=== PATIENT | female | born 1940 | race Caucasian/White ===

== ENCOUNTER → 2017-10-03 | Outpatient (CLI) | payer OTHER, MEDICARE | LOC: BMCIMAGING 08:02 | PROVIDERS: ATTEND Orthopaedic Surgery | DX: M17.12 Unilateral primary osteoarthritis, left knee (principal) ==

== ENCOUNTER → 2017-12-05 | Outpatient (CLI) | payer OTHER, MEDICARE | LOC: BMCIMAGING 09:08 | PROVIDERS: ATTEND Orthopaedic Surgery | DX: M16.11 Unilateral primary osteoarthritis, right hip (principal) ==

== ENCOUNTER → 2017-12-17 | Outpatient (CLI) | payer OTHER, MEDICARE | LOC: FIMAGING 09:49 | PROVIDERS: ATTEND Orthopaedic Surgery | DX: Z01.818 Encounter for other preprocedural examination (principal); M17.12 Unilateral primary osteoarthritis, left knee; Z96.651 Presence of right artificial knee joint ==

== ENCOUNTER 2017-12-30 07:15 | Observation (INO) | payer OTHER, MEDICARE ==
--- NOTE | 2017-12-30 06:18 | PDIAF ---
- Diagnosis Diagnosis: left knee djd Code Status: Full Code - Medication Management Discharge Medications: Medications to Continue on Transfer Aspirin EC [Aspirin EC 81 mg (OTC)] 81 mg PO DAILY 04/29/13 [Last Taken 04/29/13 ] Acetaminophen [Tylenol 325mg (*)] 650 mg PO Q6 PRN 12/06/17 [Last Taken Unknown] Herbals/Supplements -Info Only 1 ea PO DAILY 12/06/17 [Last Taken Unknown] Naproxen Sodium [Aleve 220 MG (*)] 220 mg PO DAILY PRN 12/06/17 [Last Taken Unknown] Tears/Dextran 70/Hypromellose [Natural Balance Tears (*)] 1 drop EACHEYE Q2 PRN 12/06/17 [Last Taken Unknown] Discharge Medications: Refer to the Discharge Home Medication list for PRN reason. - Orders Services needed: Physical Therapy Diet Recommendation: no restrictions on diet Diet Texture: Regular Texture Diet Additional Instructions: TOTAL JOINT ARTHROPLASTY DISCHARGE INSTRUCTIONS 1. Your surgeon follows the [facility] protocol for reducing your risk of DVT (blood clots) following surgery. Medication will be ordered to prevent blood clots. A sudden increase in calf pain and/or swelling could indicate a blood clot in your leg. If this occurs, please call your surgeon or his/her political science research assistant. An ultrasound of the leg may be necessary to diagnose a blood clot. If you have conditions that make you a higher risk for blood clots, your surgeon may use more aggressive ways to prevent them. Notify your surgeon if you think you are a high risk for blood clots. 2. Wear your white surgical stockings (KASSANDRA hose) for 2 weeks. This decreases your swelling and may help prevent blood clots. It is ok to remove KASSANDRA hose at night time to give your legs a break. 3. Swelling and bruising in the surgical leg is common. If you feel that it is excessive, please notify your surgeon. 4. Elevate your surgical leg with the ankle above the hip several times every day. Please keep the leg straight when you elevate by putting pillows under your foot. Do not put pillows under your knee. This will make being able to fully straighten more difficult. This is uncomfortable, but try to do it as much as possible. 5. For total knee replacements use compressive wrap on your knee for 3-5 days after surgery, then you can discontinue it. 6. Use a walker or crutches for 1-2 weeks. Progress your weight-bearing as tolerated. You may start to use a cane when you feel stable and safe. 7. You will receive physical therapy instructions in the hospital. Continue those exercises at home. There are additional exercises in the total joint booklet you were given before surgery. Outpatient physical therapy will begin 7- 10 days after surgery. Please schedule this in advance. 8. Use ice on your knee at least 3-5 times every day for 30 minutes. This helps reduce pain and swelling. Also use it at night before falling asleep. 9. Leave your surgical dressing in place for 2 weeks. Your dressing is water resistant, but not waterproof. Cover it with Saran Wrap or [id number] before showering. You may shower as soon as you feel safe entering a shower. If you notice bleeding from your incision 2 or 3 days after surgery, please notify your surgeon. 10. Due to narcotics, decreased activity and altered diet, most patients experience constipation after surgery. Use jblv-lhb-jvliabl stool softeners while you are on narcotics. 11. You may drive a car when you are comfortable bearing weight, have good muscular control of your leg and are off narcotics. This usually occurs 2-4 weeks after surgery, depending on which leg was operated on. 12. If there are questions not addressed here, please refer the [facility] book given for more information. If you still have questions, please contact your surgeon s office. 13. If you have a life-threatening emergency, please call 911 and go to the emergency room immediately. For non-life threatening emergencies, please call your physicians office for advice before going to the emergency room. - Follow Up Care Current Providers and Referrals: Sherice Orr MD [Primary Care Provider] - Venkatesh Stratton MD [Medical Doctor] -
--- NOTE | 2017-12-30 06:18 | PDHPUP ---
History & Physical Update H&P update statement: This history and physical update is based on an assessment of the patient which was completed after admission or registration (within 24 hours), but prior to the surgery/procedure. H&P update: no change in patient's condition since H&P completed
[~2017-12-30 07:15] MED LIST: CALCIUM CHLORIDE 1 GM/10 ML INJ ONE; ROPIVACAINE 0.2% 80 MG, EPINEPHrine 0.2 MG, KETOROLAC TROMETHAMINE 30 MG, morphINE 10 M... IU ONE; THROMBIN (BOVINE) 5,000 UNIT VIAL TP ONE; TRANEXAMIC ACID 1,000 MG in NS 100 ML IV ONE; ceFAZolin 1 GM/5 ML SYR ONE
[2017-12-30] MEDS ORDERED: FAMOTIDINE 20 MG TAB PO ONE (07:39)
[2017-12-30] MEDS ORDERED: ceFAZolin 2 GM/DEXTROSE 100 ML IV ONE (07:39)
[2017-12-30] MEDS ORDERED: ACETAMINOPHEN 325 MG TAB PO ONE (07:39)
[2017-12-30] MEDS ORDERED: LR 1,000 ML IV ONE (07:41)
--- NOTE | 2017-12-30 08:09 | PDANEPAE ---
ANE Past Medical History - Cardiovascular History Hx Hypertension: No Hx Arrhythmias: No Hx Chest Pain: No Hx Coronary Artery / Peripheral Vascular Disease: No Hx CHF / Valvular Disease: No Hx Palpitations: No - Pulmonary History Hx COPD: No Hx Asthma/Reactive Airway Disease: No Hx Recent Upper Respiratory Infection: No Hx Oxygen in Use at Home: No Hx Sleep Apnea: No Sleep Apnea Screening Result - Last Documented: Negative - Neurologic History Hx Cerebrovascular Accident: No Hx Seizures: No Hx Dementia: No - Endocrine History Hx Diabetes: No Hypothyroid: No Hyperthyroid: No Obesity: no - Renal History Hx Renal Disorders: No - Liver History Hx Hepatic Disorders: No - Neurological & Psychiatric Hx Hx Neurological and Psychiatric Disorders: No - Cancer History Hx Cancer: No - Congenital Disorder History Hx Congenital Disorders: No - GI History GERD: no Hx Gastrointestinal Disorders: No - Other Health History Other Health History: wears glasses occ - Chronic Pain History Chronic Pain: Yes (left knee and right hip) - Surgical History Prior Surgeries: 05/04/13 right TKA with Repine. 02/2013 eye surgery with Perrin. hysterectomy 1987. bilateral cataracts ANE Review of Systems Review of Systems: - Exercise capacity METS (RN): 5 METS ANE Patient History - Allergies Allergies/Adverse Reactions: No Known Allergies Allergy (Verified 12/09/17 10:33) - Home Medications Home Medications: Aspirin EC [Aspirin EC 81 mg (OTC)] 81 mg PO DAILY 04/29/13 [Last Taken 12/23/17 ] Acetaminophen [Tylenol 325mg (*)] 650 mg PO Q6 PRN 12/06/17 [Last Taken 12/23/17 ] Herbals/Supplements -Info Only 1 ea PO DAILY 12/06/17 [Last Taken 12/23/17] Naproxen Sodium [Aleve 220 MG (*)] 220 mg PO DAILY PRN 12/06/17 [Last Taken 08/11] Tears/Dextran 70/Hypromellose [Natural Balance Tears (*)] 1 drop EACHEYE Q2 PRN 12/06/17 [Last Taken 12/28/17] - Anes Hx Anes Hx: no prior problems - Smoking Hx Smoking Status: Never smoked Marijuana use: No - Alcohol Use Alcohol Use: Rarely - Family Anes Hx Family Anes Hx: neg - N/A Family Hx Anesthesia Complications: none ANE Labs/Vital Signs - Vital Signs Height: 170.18 cm Weight: 68.039 kg ANE Physical Exam - Airway Neck exam: decreased ROM Mallampati Score: Class 2 Mouth exam: normal dental/mouth exam - Pulmonary Pulmonary: no respiratory distress, no rales or rhonchi, clear to auscultation - Cardiovascular Cardiovascular: regular rate and rhythym, no murmur, rub, or gallop - ASA Status ASA Status: II ANE Anesthesia Plan Anesthesia Plan: MAC, spinal Regional Anesthesia: single shot NB, adductor canal FNB Total IV Anesthesia: No
[2017-12-30] MEDS ORDERED: ceFAZolin 1 GM/5 ML SYR ONE (08:53)
[2017-12-30] MEDS ORDERED: THROMBIN (BOVINE) 5,000 UNIT VIAL TP ONE (08:53)
[2017-12-30] MEDS ORDERED: CALCIUM CHLORIDE 1 GM/10 ML INJ ONE (08:53)
[2017-12-30] MEDS ORDERED: PROPOFOL/EMULSION 500 MG/50 ML BOTTLE IV ONE (09:13)
[2017-12-30] MEDS ORDERED: fentaNYL 100 MCG/2 ML INJ ONE (09:13)
[2017-12-30] MEDS ORDERED: MIDAZOLAM 2 MG/2 ML VIAL ONE (09:14)
[2017-12-30] MEDS ORDERED: BUPIVACAINE/DEXTROSE 7.5MG/ML 2 ML SPINAL AMP SP ONE (09:14)
[2017-12-30] MEDS ORDERED: ONDANSETRON 4 MG/2 ML VIAL IVP PRN ×2 (10:03→10:35)
[2017-12-30] MEDS ORDERED: oxyCODONE IR 5 MG TAB PO PRN ×2 (10:03→10:35)
[2017-12-30] MEDS ORDERED: PHENYLEPHRINE HCL 100 MCG/ML SYR IVP PRN (10:03)
[2017-12-30] MEDS ORDERED: LR 500 ML IV PRN (10:03)
[2017-12-30] MEDS ORDERED: HYDROCODONE/APAP 5/325 TAB PO PRN (10:03)
[2017-12-30] MEDS ORDERED: PROMETHAZINE HCL 25 MG/ML INJ IVP PRN ×2 (10:03→10:35)
[2017-12-30] MEDS ORDERED: MIDAZOLAM 2 MG/2 ML VIAL IVP ONE (10:03)
[2017-12-30] MEDS ORDERED: fentaNYL 100 MCG/2 ML INJ IVP PRN (10:03)
[2017-12-30] MEDS ORDERED: ACETAMINOPHEN 500 MG TAB PO PRN (10:03)
[2017-12-30] MEDS ORDERED: NALOXONE HCL 0.4 MG/ML INJ IVP PRN (10:03)
[2017-12-30] MEDS ORDERED: DIPHENOXYLATE/ATROPINE LOMOTIL 1 TAB PO PRN (10:35)
[2017-12-30] MEDS ORDERED: traMADol 50 MG TAB PO PRN (10:35)
[2017-12-30] MEDS ORDERED: METOCLOPRAMIDE 10 MG/2 ML VIAL IVP PRN (10:35)
[2017-12-30] MEDS ORDERED: MAGNESIUM HYDROXIDE 30 ML UDCUP PO PRN (10:35)
[2017-12-30] MEDS ORDERED: ONDANSETRON DISINTEGRATING 4 MG TAB PO PRN (10:35)
[2017-12-30] MEDS ORDERED: LACTULOSE 20 GM/30 ML UDCUP PO PRN (10:35)
[2017-12-30] MEDS ORDERED: BISACODYL 10 MG SUPP PR PRN (10:35)
[2017-12-30] MEDS ORDERED: diphenhydrAMINE 25 MG CAP PO PRN (10:35)
[2017-12-30] MEDS ORDERED: TEMAZEPAM 15 MG CAP PO PRN (10:35)
[2017-12-30] MEDS ORDERED: POLYETHYLENE GLYCOL 3350 17 GM PKT PO PRN (10:35)
[2017-12-30] MEDS ORDERED: PROMETHAZINE HCL 25 MG SUPPR PR PRN (10:35)
[2017-12-30] MEDS ORDERED: CYCLOBENZAPRINE 10 MG TAB PO PRN (10:35)
--- NOTE | 2017-12-30 10:35 | POSTOPPROG ---
Post Op Note Date of Operation: 12/30/17 Surgeon: Venkatesh Stratton Day Guard: rachel Anesthesiologist: sri Anesthesia: Spinal Pre-op Diagnosis: left knee djd Post-op Diagnosis: same Indication: same Procedure: left tka Inf/Abcess present in the surg proc area at time of surgery?: No Depth: Deep Incisional (Fascial) EBL: 100-500
[2017-12-30] MEDS ORDERED: TEARS/DEXTRAN 70/HYPROMELLOSE 15 ML OPHT.BTL EACHEYE PRN (10:36)
[2017-12-30] MEDS ORDERED: ROPIVACAINE HCL 150 MG/30 ML INJ ONE (10:43)
[2017-12-30] MEDS ORDERED: LR 1,000 ML IV SCH (11:00)
--- NOTE | 2017-12-30 12:22 | POSTANESTH ---
Post Anesthetic Evaluation Cardiovascular Status: Normal, Stable Respiratory Status: Normal, Stable Level of Consciousness/Mental Status: Can Participate in Eval Pain Control: Adequate, Prn Tx Ordered Nausea/Vomiting Control: Adequate, Prn Tx Ordered Complications Possibly Related to Anesthesia: None Noted
[2017-12-30] MEDS: ACETAMINOPHEN 325 MG TAB PO SCH ×2 (13:18→18:16)
--- NOTE | 2017-12-30 15:28 | ASMTCMCOM ---
CM Note CM Note Notes: Patient is POD #0 L TKA. She has not worked with therapies yet but has expressed that she is anxious about going home. She lives alone. I explained that we'll need to talk with Dr Stratton about sending her to a SNF. She expressed understanding and will wait to speak with him tomorrow, as will we. Case Management will follow. Date Signed: 12/30/2017 03:27 PM Electronically Signed By:Bekah Luciano RN
[2017-12-30] MEDS: TRANEXAMIC ACID 650 MG TAB PO SCH (17:18)
[2017-12-30] MEDS: ceFAZolin 2 GM/DEXTROSE 100 ML IV SCH (17:21)
[2017-12-30] MEDS: FAMOTIDINE 20 MG TAB PO SCH (22:36)
[2017-12-30] MEDS: ASPIRIN 325 MG TAB PO SCH (22:36)
[2017-12-30] MEDS: SENNOSIDES/DOCUSATE SODIUM TAB PO SCH (22:37)
[2017-12-31] MEDS: TRANEXAMIC ACID 650 MG TAB PO SCH ×2 (00:09→07:45)
[2017-12-31] MEDS: ACETAMINOPHEN 325 MG TAB PO SCH ×3 (00:09→12:28)
[2017-12-31] MEDS: ceFAZolin 2 GM/DEXTROSE 100 ML IV SCH (00:09)
[2017-12-31 07:26] VITALS: BP 110/81
[2017-12-31] MEDS: ASPIRIN 325 MG TAB PO SCH (07:46)
[2017-12-31] MEDS: FAMOTIDINE 20 MG TAB PO SCH (07:46)
[2017-12-31] MEDS: SENNOSIDES/DOCUSATE SODIUM TAB PO SCH (07:46)
--- NOTE | 2017-12-31 09:59 | SOAPPROG ---
SOAP Progress Note Assessment/Plan: Assessment: s/p tka Plan: stable d/c when clears pt dvt precautions reviewed 12/31/17 09:58 Subjective: nervous about going home min pain no cp or sob Objective: Vital Signs Temp Pulse Resp BP Pulse Ox 36.3 C 67 16 110/81 H 93 12/31/17 07:22 12/31/17 07:22 12/31/17 07:22 12/31/17 07:22 12/31/17 07:22 Laboratory Results 12/31/17 04:32 12/30/17 12/31/17 01/01/18 05:59 05:59 05:59 Intake Total 3791 Output Total 2750 600 Balance 1041 -600 dressing intact intact pf,df,ehl toes warm and pink neg homans xrays stable no fx or lucency ICD10 Worksheet Patient Problems: Problems Problem Status Onset Knee osteoarthritis Acute
--- NOTE | 2017-12-31 10:01 | PDIAF ---
- Diagnosis Diagnosis: left knee djd Code Status: Full Code - Medication Management Discharge Medications: Medications to Continue on Transfer Acetaminophen [Tylenol 325mg (*)] 650 mg PO Q6 PRN 12/06/17 [Last Taken 12/23/17 ] Herbals/Supplements -Info Only 1 ea PO DAILY 12/06/17 [Last Taken 12/23/17] Tears/Dextran 70/Hypromellose [Natural Balance Tears (*)] 1 drop EACHEYE Q2 PRN 12/06/17 [Last Taken 12/28/17] Aspirin [Aspirin 325 mg (*)] 325 mg PO DAILY tab 12/31/17 [Last Taken Unknown] oxyCODONE IR [Oxycodone Ir (*)] 5 - 10 mg PO Q3HRS PRN #60 tab 12/31/17 [Last Taken Unknown] Discharge Medications: Refer to the Discharge Home Medication list for PRN reason. - Orders Services needed: Physical Therapy Diet Recommendation: no restrictions on diet Diet Texture: Regular Texture Diet Additional Instructions: TOTAL JOINT ARTHROPLASTY DISCHARGE INSTRUCTIONS 1. Your surgeon follows the [facility] protocol for reducing your risk of DVT (blood clots) following surgery. Medication will be ordered to prevent blood clots. A sudden increase in calf pain and/or swelling could indicate a blood clot in your leg. If this occurs, please call your surgeon or his/her clinical data assistant. An ultrasound of the leg may be necessary to diagnose a blood clot. If you have conditions that make you a higher risk for blood clots, your surgeon may use more aggressive ways to prevent them. Notify your surgeon if you think you are a high risk for blood clots. 2. Wear your white surgical stockings (KASSANDRA hose) for 2 weeks. This decreases your swelling and may help prevent blood clots. It is ok to remove KASSANDRA hose at night time to give your legs a break. 3. Swelling and bruising in the surgical leg is common. If you feel that it is excessive, please notify your surgeon. 4. Elevate your surgical leg with the ankle above the hip several times every day. Please keep the leg straight when you elevate by putting pillows under your foot. Do not put pillows under your knee. This will make being able to fully straighten more difficult. This is uncomfortable, but try to do it as much as possible. 5. For total knee replacements use compressive wrap on your knee for 3-5 days after surgery, then you can discontinue it. 6. Use a walker or crutches for 1-2 weeks. Progress your weight-bearing as tolerated. You may start to use a cane when you feel stable and safe. 7. You will receive physical therapy instructions in the hospital. Continue those exercises at home. There are additional exercises in the total joint booklet you were given before surgery. Outpatient physical therapy will begin 7- 10 days after surgery. Please schedule this in advance. 8. Use ice on your knee at least 3-5 times every day for 30 minutes. This helps reduce pain and swelling. Also use it at night before falling asleep. 9. Leave your surgical dressing in place for 2 weeks. Your dressing is water resistant, but not waterproof. Cover it with Saran Wrap or Oyagf-t-Xblp before showering. You may shower as soon as you feel safe entering a shower. If you notice bleeding from your incision 2 or 3 days after surgery, please notify your surgeon. 10. Due to narcotics, decreased activity and altered diet, most patients experience constipation after surgery. Use vuvl-kit-ncbhrbo stool softeners while you are on narcotics. 11. You may drive a car when you are comfortable bearing weight, have good muscular control of your leg and are off narcotics. This usually occurs 2-4 weeks after surgery, depending on which leg was operated on. 12. If there are questions not addressed here, please refer the [facility] book given for more information. If you still have questions, please contact your surgeon s office. 13. If you have a life-threatening emergency, please call 911 and go to the emergency room immediately. For non-life threatening emergencies, please call your physicians office for advice before going to the emergency room. - Follow Up Care Current Providers and Referrals: Sherice Orr MD [Primary Care Provider] - Venkatesh Stratton MD [Medical Doctor] -
--- NOTE | 2017-12-31 16:49 | ASDISCHSUM ---
Discharge Information Plan Status:Home with Home Health Medically Cleared to Leave: Discharge Date:12/31/2017 01:48 PM CM D/C Disposition:Home Health Service ADT D/C Disposition:Home Health Service Projected Discharge Date:12/31/2017 11:00 AM Transportation at D/C: Discharge Delay Reason: Follow-Up Date:12/31/2017 11:00 AM Discharge Slot: Final Diagnosis: Placement Information Referral Type:*Home Health Care Services Referral ID:[id number] Provider Name:[facility] [place] Address 1:[address] [place] [address] Address 2: City:[place] Selection Factors: State:[place] Patient Contact Information Contact Name:CLARISSE Relationship:Friend Address: Work Phone: City: [facility] Phone: [facility] [address]/[facility] Code: Email: Financial Information Financial Class:Medicare Primary Plan Desc:MEDICARE OUTPATIENT Primary Plan Number:[id number] Secondary Plan Desc:[employer]/MDR SUPPLEMENT Secondary Plan Number:[id number] Assessment Information [facility] CM Progress Note CM Note CM Note Notes: Patient is POD #0 L TKA. She has not worked with therapies yet but has expressed that she is anxious about going home. She lives alone. I explained that we'll need to talk with Dr Stratton about sending her to a SNF. She expressed understanding and will wait to speak with him tomorrow, as will we. Case Management will follow. Date Signed: 12/30/2017 03:27 PM Electronically Signed By:Bekah Luciano RN [facility] CM Progress Note CM Note CM Note Notes: PT rec HHC. Pt medically stable for d/c with [facility], orders sent in [employer]. Pt address/phone verified. Date Signed: 12/31/2017 04:48 PM Electronically Signed By:ALFRED Bacon Intervention Information Intervention Type:*Incorrect Registration Date of Service:12/30/2017 12:40 PM Patient Type:Inpatient Staff Member:EZ Cheng, Leilani Hours: Discipline: Severity: Comment: Intervention Type:*ZHOU-Signed Date of Service:12/30/2017 03:30 PM Patient Type:Observation Staff Member:Nicki Morales Hours: Discipline: Severity: Comment:
--- NOTE | 2018-01-08 10:38 | GDS ---
[f rep st] DISCHARGE SUMMARY ADMISSION DIAGNOSIS: Left knee degenerative joint disease. DISCHARGE DIAGNOSIS: Left knee degenerative joint disease. PROCEDURE: Left total knee arthroplasty. HISTORY OF PRESENT ILLNESS: The patient is a 77-year-old woman with end-stage arthritis to her left knee. She presents for a left total knee replacement. HOSPITAL COURSE: Patient was admitted after uncomplicated total knee replacement. She tolerated the procedure well. She progressed rapidly with physical therapy. At the time of discharge, she is tiffanie erating an oral diet. Pain was well controlled on oral medicines. She is voiding without difficulty . Dressing is clean, dry, and intact. Negative Homans. X-rays are stable. DISCHARGE INSTRUCTIONS/FOLLOWUP: 1. Discharge activity: Weightbearing, range of motion as tolerated. 2. Daily dressing changes. 3. No soaking or immersion. May shower without the bandage. 4. Follow up in 2 weeks. 5. Seek attention for increasing swelling, pain, redness, leg pain shortness of breath, or other foc al complaint. DISCHARGE MEDICATIONS: Oxycodone 5 mg 1-2 every 4 hours p.r.n. pain, aspirin 10 25 mg p.o. daily for 6 weeks. /[id number]/MODL
--- NOTE | 2018-01-08 10:38 | GOP ---
[f rep st] OPERATIVE REPORT DATE OF OPERATION: 12/30/2017 SURGEON: Venkatesh Stratton MD ROUTE CONTRACTOR: Frank Tinoco, [employer] SECRETARY, FILLING TECHNICIAN, certified surgical tech/first assistant was medical necessity for the entirety of t he case. PREOPERATIVE DIAGNOSIS: Left knee degenerative joint disease. POSTOPERATIVE DIAGNOSIS: Left knee degenerative joint disease. PROCEDURE PERFORMED: Left total knee arthroplasty, MAKOplasty. FINDINGS: SPECIMENS: To Pathology, bony cuts. DESCRIPTION OF PROCEDURE: Patient was identified in the preanesthesia area. The left knee clearly d emarcated as the operative site with indelible marker. She was given 2 g of Ancef intravenously en r oute to the operative suite. In the OR a spinal block was placed followed by sedation. She was posi tioned in the supine position. The left lower extremity was sterilely prepped, and draped in the usu al fashion. Appropriate time-out procedure was carried out. The limb was exsanguinated with Esmarch bandage. Tourniquet inflated to 275 mmHg. Standard anterior midline incision was made. Thick subc utaneous flaps were elevated followed by medial parapatellar arthrotomy. Subperiosteal elevation was carried out the mid coronal plane. Retractors were placed. The knee was brought to a flexed positi on. There was tricompartmental arthritis. An additional incision was made over the distal mid tibia , 2 pins were placed and the tibial reference array affixed. A tibial check point was placed. The f emoral check point was placed. Two pins were placed from medial to lateral across the distal femur f or the femoral reference array. All bony landmarks were then entered into the computer in standard f ashion. The marginal osteophytes were removed. Soft tissue releases, and use of the software were u tilized to balance the knee through the flexion-extension arc. Using the MAKOplasty robot, resection s were made for a size 5 femur, size 4 tibia, and ultimately a 4 x 11 mm polyethylene spacer was then selected. The trial reduction was then carried out. The knee would come to full extension. Neutra l alignment was stable with varus valgus stress through the flexion and extension. Trial components were withdrawn. A size 4 tibia was press-fit, size 5 femur, press-fit, and a 4 x 11 mm polyethylene placed and confirmed to be fully seated. The knee was stable as previously. The knee was brought in to extension. The patella was everted, cut in a freehand cutting technique. Three drill holes were made for a 35 mm patella. The press-fit patella was then placed. The knee was taken through flexion extension once again, patella tracked centrally through the groove. The wound was copiously irrigat ed. The joint was instilled with a joint cocktail of ropivacaine, morphine, Toradol, and epinephrine . The medial parapatellar arthrotomy closed using #1 Ethibond. The knee instilled with platelet-adis h plasma. Subcutaneous tissue closed using 2-0 Monocryl and skin was stapled. Sterile dressing was applied. The patient was awakened, extubated and taken to the recovery room in stable condition. OPERATIVE INDICATIONS: The patient is a 77-year-old woman with end-stage arthritis to the left knee. She presents today for left total knee replacement. She understands the risks, benefits, alternati ves, and wished to proceed. Written consent was signed and placed in patient's chart. TOTAL TOURNIQUET TIME: 55 minutes. COMPLICATIONS: None. IMPLANTS: Charlene triathlon posterior stabilized femoral component size 5, tibia size 4, 4 x 11 mm p olyethylene spacer and a 35 mm patella. DISPOSITION: To the recovery room, then the floor. She will follow standard postop recovery. /[id number]/MODL
== END 2017-12-31 13:48 | disposition home health service (06) ==
LOC: F3N 07:30 → INTOOBSV 07:30 → F3N 12:24
PROVIDERS: ADMIT Orthopaedic Surgery; ATTEND Orthopaedic Surgery
PROC: 0SRD0JZ Replacement of Left Knee Joint with Synthetic Substitute, Open Approach (ICD-10-PCS; principal; 2017-12-30 09:15)
PROC: 8E0Y0CZ Robotic Assisted Procedure of Lower Extremity, Open Approach (ICD-10-PCS; principal; 2017-12-30 09:15)
DX: M17.12 Unilateral primary osteoarthritis, left knee (principal)
CPT/HCPCS: 27447; 73560; 88305; 88311; 97116; 97161; 97165; 97530; 97535; C1776; G8978; G8979; G8980; G8987; G8988; G8989; J0171; J0690; J1885; J2250; J2270; J2704; J2795; J3010

== ENCOUNTER → 2018-02-10 | Outpatient (CLI) | payer OTHER, MEDICARE | LOC: BMCIMAGING 10:34 | PROVIDERS: ATTEND Orthopaedic Surgery | DX: Z09 Encounter for follow-up examination after completed treatment for conditions other than malignant neoplasm (principal); Z96.652 Presence of left artificial knee joint ==

== ENCOUNTER → 2018-03-24 | Outpatient (CLI) | payer OTHER, MEDICARE | LOC: BMCIMAGING 10:00 | PROVIDERS: ATTEND Orthopaedic Surgery | DX: Z47.89 Encounter for other orthopedic aftercare (principal); Z96.652 Presence of left artificial knee joint ==

== ENCOUNTER → 2018-06-25 | Outpatient (CLI) | payer OTHER, MEDICARE | END | disposition home or self-care (01) | LOC: BMCIMAGING 09:38 | PROVIDERS: ATTEND Orthopaedic Surgery | DX: Z09 Encounter for follow-up examination after completed treatment for conditions other than malignant neoplasm (principal); Z96.652 Presence of left artificial knee joint ==